=== PATIENT | male | born 1970 | race Caucasian/White ===

== ENCOUNTER 2024-01-14 15:59 | Emergency (ER) | payer BC, OTHER ==
[2024-01-14 16:29] LABS: BASOPHILS # (AUTO) 0.1 10^3/uL (0.0-0.1); BASOPHILS % (AUTO) 0.9 %; EOSINOPHILS # (AUTO) 0.2 10^3/uL (0.0-0.7); EOSINOPHILS % (AUTO) 2.7 %; HCT - HEMATOCRIT 48.8 % (42.0-52.0); HGB - HEMOGLOBIN 16.9 g/dL (14.0-18.0); LYMPHOCYTES % (AUTO) 30.5 %; MEAN CORPUSCULAR HEMOGLOBIN 31.8 pg (27.0-31.0); MEAN CORPUSCULAR HGB CONC 34.6 g/dL (32.0-36.0); MEAN CORPUSCULAR VOLUME 91.7 fL (80.0-94.0); MEAN PLATELET VOLUME 9.6 fL (7.4-11.4); MONOCYTES # (AUTO) 0.7 10^3/uL (0.0-1.0); MONOCYTES % (AUTO) 10.5 %; NEUTROPHILS # (AUTO) 3.7 10^3/uL (1.5-6.6); NEUTROPHILS % (AUTO) 55.1 %; PLT - PLATELET COUNT 195 10^3/uL (130-450); RED BLOOD COUNT 5.32 10^6/uL (4.70-6.10); RED CELL DISTRIBUTION WIDTH 12.2 % (12.0-15.0); WHITE BLOOD COUNT 6.7 x10^3/uL (4.8-10.8)
--- NOTE | 2024-01-14 16:39 | ED Physician Documentation ---
History of Present Illness - Stated complaint Stated Complaint: ABD PX - Chief complaint Chief Complaint: General - History obtained from History obtained from: Patient - Additonal information Additional information: 53-year-old otherwise healthy gentleman with no history of abdominal surgeries presents with right sided abdominal pain. It started about 3 hours ago and is in the mid axillary line below the rib cage on the right. It was relatively quick in onset and not associated with any nausea or vomiting. He has been mildly constipated recently. No fevers or chills. PD PAST MEDICAL HISTORY - Past Medical History Past Medical History: No Cardiovascular: None Respiratory: None Neuro: None Endocrine/Autoimmune: None GI: None : None HEENT: None Psych: None Musculoskeletal: None Derm: None - Past Surgical History Past Surgical History: Yes - Present Medications Home Medications: Ambulatory Orders Medication Instructions Recorded Confirmed Acyclovir 400 mg PO DAILY 01/14/24 - Allergies Allergies/Adverse Reactions: Allergies Allergy/AdvReac Type Severity Reaction Status Date / Time No Known Drug Allergies Allergy Verified 01/14/24 16:12 - Social History Does the pt smoke?: No Smoking Status: Never smoker Does the pt drink ETOH?: Yes Does the pt have substance abuse?: No - Immunizations Immunizations are current?: Yes - POLST Patient has POLST: No PD ED PE NORMAL - Vitals Vital signs reviewed: Yes - General General: Alert and oriented X 3, No acute distress - Cardiac Cardiac: RRR, No murmur - Respiratory Respiratory: No respiratory distress - Abdomen Abdomen: Other (He is tender in the left far lateral abdomen mid axillary line below the ribs. There is no significant right upper lower quadrant or right lower quadrant tenderness.) - Neuro Neuro: Alert and oriented X 3 Results - Vitals Vitals: Vital Signs - 24 hr 01/14/24 16:01 Temperature 36.2 C L Heart Rate 65 Respiratory 16 Rate Blood Pressure 143/92 H O2 Saturation 99 Oxygen O2 Source Room air - Labs Labs: Laboratory Tests 01/14/24 01/14/24 16:21 16:21 WBC 6.7 RBC 5.32 Hgb 16.9 Hct 48.8 MCV 91.7 MCH 31.8 H MCHC 34.6 RDW 12.2 Plt Count 195 MPV 9.6 Neut # (Auto) 3.7 Lymph # (Auto) 2.0 Archer # (Auto) 0.7 Eos # (Auto) 0.2 Baso # (Auto) 0.1 Absolute Nucleated RBC 0.00 Nucleated RBC % 0.0 Sodium 137 Potassium 3.9 Chloride 104 Carbon Dioxide 26 Anion Gap 7.0 BUN 17 Creatinine 0.9 Estimated GFR (MDRD) 89 Glucose 86 Calcium 9.0 Total Bilirubin 0.6 AST 24 ALT 29 Alkaline Phosphatase 76 Total Protein 6.7 Albumin 4.1 Globulin 2.6 Albumin/Globulin Ratio 1.6 Lipase 24 - Rads (name of study) CT of the abdomen pelvis demonstrates potential bowel thickening in the descending colon and sigmoid, otherwise unremarkable. Relevant Findings:: Final report received, EMP independent interpretation of test PD Medical Decision Making - ED course ED course: His pain was quite far lateral on the right, really too far lateral to be consistent with biliary disease. It resolved while here and diagnostic test including CBC, CMP and CT were unremarkable with the exception of possible colitis which does not fit his symptoms. Departure - Departure Disposition: 01 Home, Self Care Clinical Impression: Abdominal pain Qualifiers: Abdominal location: right upper quadrant Qualified Code(s): R10.11 - Right upper quadrant pain Condition: Good Record reviewed to determine appropriate education?: Yes Instructions: ED Abdominal Pain Unkn Cause Male Comments: As discussed, diagnostic testing including lab work and CT were all basically normal. The radiologist wondered if he might have some inflammation of your descending colon but as we discussed that would not fix your symptoms as the pain [place] on the left side and usually associated with diarrhea which if anything you are a bit constipated. Call your doctor to arrange a follow-up appointment, make the next available appointment. In the interim, return anytime if worse or if new symptoms develop. Forms: PCP List
[2024-01-14 16:48] LABS: ALBUMIN 4.1 g/dL (3.2-5.5); ALBUMIN/GLOBULIN RATIO 1.6 (1.0-2.2); BILIRUBIN,TOTAL 0.6 mg/dL (0.2-1.0); CREATININE 0.9 mg/dL (0.6-1.3); POTASSIUM 3.9 mmol/L (3.5-4.5); TOTAL PROTEIN 6.7 g/dL (6.4-8.9)
[2024-01-14] MEDS ORDERED: iohexoL-300 100 ML VIAL ONE (16:57)
[2024-01-14] MEDS: iohexoL-300 100 ML VIAL IVP ONE (17:24)
--- NOTE | 2024-01-14 17:50 | CT Report ---
PROCEDURE: Abdomen/Pelvis W INDICATIONS: IV only, R abd pain, most c/w epiploic appendagiti CONTRAST: 100ml [id number] TECHNIQUE: After the administration of intravenous contrast, a CT scan of the abdomen and pelvis was performed. Images were recorded and evaluated at appropriate window settings. Reformats: coronal and sagittal. F or radiation dose reduction, the following was used: automated exposure control, adjustment of mA and /or kV according to patient size. COMPARISON: None. FINDINGS: Image quality: Diagnostic. Lower chest: Unremarkable. Liver: No solid mass. Hypoattenuating circumscribed lesions in the liver most likely cysts. Gallbladder: Gallbladder is contracted, which limits evaluation. Biliary tree: No intrahepatic or extrahepatic dilation, accounting for age. Spleen: No splenomegaly. Pancreas: No pancreatic ductal dilation. Adrenals: No adrenal nodule. Kidneys and ureters: No hydronephrosis. No renal cystic lesion which requires follow up. No solid mas s. Stomach, bowel and peritoneum: No gastric or small bowel dilation. No pathologic free fluid. Multipl e diverticula are seen in the colon without signs of acute diverticulitis. Normal appendix. Mild jett l thickening is seen in the descending and sigmoid colon. Lymph nodes: No central or retroperitoneal adenopathy. Vessels: No infrarenal aortic aneurysm. Patent portal vein. PELVIS Reproductive organs: Unremarkable. Bladder: No abnormal wall thickening, accounting for underdistention. Pelvic lymph nodes: No pelvic adenopathy by size criteria. Bones: No aggressive osseous abnormality. Other: No significant ventral or inguinal hernia. IMPRESSION: 1.Bowel thickening in the descending and sigmoid colon may be secondary to underdistention versus a n onspecific colitis. Normal appendix. No signs of epiploic appendagitis. 2.Colonic diverticulosis without signs of acute diverticulitis. Reviewed by: Dakota Christianson MD on 01/14/2024 5:49 PM PDT Approved by: Dakota Christianson MD on 01/14/2024 5:49 PM PDT Station ID: [id number]
[2024-01-14 18:12] VITALS: BP 157/104; O2SAT 95
== END 2024-01-14 18:09 | disposition home or self-care (01) ==
LOC: ED 15:59
DX: R10.11 Right upper quadrant pain (principal)
CPT/HCPCS: 36415; 74177; 80053; 83690; 85025; 99284; Q9967